=== PATIENT | female | born 1975 | race Caucasian/White ===

== ENCOUNTER → 2018-05-22 | Outpatient (CLI) | payer BC | END | disposition home or self-care (01) | LOC: BRMIMAGING 08:32 | PROVIDERS: ATTEND Internal Medicine Rheumatology | DX: M54.2 Cervicalgia (principal); M47.9 Spondylosis, unspecified; M41.84 Other forms of scoliosis, thoracic region; M77.32 Calcaneal spur, left foot; M77.31 Calcaneal spur, right foot; M79.641 Pain in right hand; M79.642 Pain in left hand | CPT/HCPCS: 72040-PO; 72070-PO; 73120-PO; 73630-PO ==

== ENCOUNTER → 2018-06-12 | Outpatient (CLI) | payer BC | LOC: BRMIMAGING 14:02 | PROVIDERS: ATTEND Internal Medicine Rheumatology | DX: M53.3 Sacrococcygeal disorders, not elsewhere classified (principal) | CPT/HCPCS: 72200-PO ==

== ENCOUNTER → 2018-07-10 | Outpatient (CLI) | payer BC ==
[~2018-07-10] MED LIST: GADOBUTROL 10 ML VIAL IVP ONE
== END ==
LOC: FIMAGING 08:50
PROVIDERS: ATTEND Internal Medicine Rheumatology
DX: R51 Headache (principal)
CPT/HCPCS: A9585